=== PATIENT | female | born 1985 | race American Indian/Alaskan Native ===

== ENCOUNTER 2021-07-07 17:53 | Emergency (ER) | payer OTHER | END 2021-07-07 20:44 | disposition home or self-care (01) | LOC: JD.ED 17:53 | DX: N83.201 Unspecified ovarian cyst, right side (principal); Z88.0 Allergy status to penicillin | CPT/HCPCS: 36415; 76830; 76830-26; 81001; 84703; 85025; 87086; 99284-25 ==